=== PATIENT | male | born 1965 | race Hispanic/Latino ===

== ENCOUNTER 2020-03-19 08:16 | Emergency (ER) | payer OTHER ==
[2020-03-19] MEDS ORDERED: Acetaminophen 500 MG TAB ONE (08:56)
[2020-03-19] MEDS ORDERED: Sodium Chloride 0.9% 1,000 ML ONE (08:56)
[2020-03-19] MEDS ORDERED: Aspirin Chewable 81 MG TAB ONE (08:56)
[2020-03-19] MEDS ORDERED: Sodium Chloride 0.9% 1,000 ML BAG ONE ×2 (09:00)
[2020-03-19 09:05] LABS: #Basophils 0.1 thou/uL (0.0-0.2); #Eosinphils 0.1 thou/uL (0.0-0.7); #Lymphocytes 0.6 thou/uL (1.20-3.40); #Monocytes 0.7 thou/uL (0.11-0.59); #Neutrophils 9.6 thou/uL (1.40-6.50); %Basophils 0.8 % (0.0-1.0); %Eosinophils 1.3 % (0.0-10.0); %Lymphocytes 5.4 % (21.0-51.0); %Monocytes 6.5 % (0.0-10.0); %Neutrophils 85.9 % (42.0-75.0); Hemoglobin 11.6 g/dL (14.0-18.0); Mean Corpuscular HGB CONC 32.4 g/dL (32.0-36.0); Mean Corpuscular Hemoglobin 28.3 pg (27.0-31.0); Mean Corpuscular Volume 87.3 fL (78.0-98.0); Mean Platelet Volume 9.5 fL (7.4-10.4); Platelet Count 344 thou/uL (130-400); Red Blood Cell (RBC) Count 4.09 mill/uL (4.70-6.10); White Blood Cell (WBC) Count 11.1 thou/uL (4.8-10.8)
[2020-03-19 09:21] LABS: ALT (SGPT) 66 U/L (8-55); AST (SGOT) 75 U/L (5-34); Albumin 2.8 g/dL (3.5-5.0); Alkaline Phosphatase 63 U/L (40-110); Anion Gap 14 mmol/L (10-20); BUN (Urea Nitrogen) 19 mg/dL (8.4-25.7); Bilirubin, Total 0.7 mg/dL (0.2-1.2); Calc. Creatinine Clearance 0 mL/min (70-130); Calcium 7.7 mg/dL (7.8-10.44); Carbon Dioxide 24 mmol/L (22-29); Chloride 96 mmol/L (98-107); Estimated GFR-MDRD Greater than 90; Globulin 3.6 g/dL (2.4-3.5); Glucose 72 mg/dL (70-105); Potassium 3.4 mmol/L (3.5-5.1); Protein, Total 6.4 g/dL (6.0-8.3); Sodium 131 mmol/L (136-145)
[2020-03-19 09:32] LABS: Lipase 2 U/L (8-78)
--- NOTE | 2020-03-19 09:40 | RAD ---
CHEST 1 VIEW: Date: 03/19/2020 INDICATION: History of chest pain, shortness of breath, and watery diarrhea. COMPARISON: None. FINDINGS: There is cardiomegaly, pulmonary vascular congestion, and interstitial and air space opacity affectin g both lungs. No tobi pleural effusion is evident. No pneumothorax is evident. No acute osseous abno rmality is noted. There is a healed posterolateral rib deformity involving the right fifth rib. IMPRESSION: Cardiomegaly, pulmonary vascular congestion, and bilateral interstitial and air space opacities, susp icious for volume overload or CHF. POS: [facility]
[2020-03-19 09:45] LABS: INR-International Normal Ratio 1.1; PTT 30.9 sec (22.9-36.1); Prothrombin Time 14.5 sec (12.0-14.7)
[2020-03-19] MEDS ORDERED: Sodium Chloride 0.9% 100 ML ONE (09:51)
[2020-03-19] MEDS ORDERED: cefTRIAXone\\ROCEPHIN 2 GM VIAL ONE (09:51)
[2020-03-19 10:02] LABS: D-Dimer Test 17.24 *mcg/mL (0.27-0.43)
[2020-03-19] MEDS ORDERED: Sodium Chloride 0.9% 250 ML 250 ML ONE (10:08)
[2020-03-19] MEDS ORDERED: Azithromycin 500 MG VIAL ONE (10:08)
[2020-03-19] MEDS ORDERED: Enoxaparin Sodium 100 MG/ML SYRINGE ONE (12:05)
[2020-03-20 18:02] LABS: SARS-CoV-2 MS2 Positive; SARS-CoV-2 N Gene Positive; SARS-CoV-2 S Gene Positive; SARS-CoV-2 orf1ab Positive
== END 2020-03-19 13:30 | disposition short-term general hospital (02) ==
LOC: NAV ERS 08:16
DX: U07.1 COVID-19 (principal); E11.9 Type 2 diabetes mellitus without complications; E78.5 Hyperlipidemia, unspecified; I10 Essential (primary) hypertension; I25.10 Atherosclerotic heart disease of native coronary artery without angina pectoris; E03.9 Hypothyroidism, unspecified; Z79.4 Long term (current) use of insulin; Z79.82 Long term (current) use of aspirin; Z79.899 Other long term (current) drug therapy; Z87.891 Personal history of nicotine dependence
CPT/HCPCS: 71045; 80053; 83605; 83690; 83880; 84484; 85025; 85379; 85610; 85730; 87040; 87149; 87635; 87804; 93005; 94760; 96361; 96365; 96372; 96375; J0456; J0696; J1650; J3490; J7050; U0003